=== PATIENT | male | born 1995 | race Caucasian/White ===

== ENCOUNTER 2021-12-20 16:52 | Emergency (ER) | payer OTHER ==
[~2021-12-20] VITALS: Ht 177.8 cm; Wt 99.8 kg
[2021-12-20] MEDS ORDERED: NORCO5 PO (19:20)
[2021-12-20] MEDS ORDERED: CEPHALEXIN500 MG PO (19:20)
[2021-12-20 19:57] VITALS: BP 133/95
== END 2021-12-20 19:58 | disposition home or self-care (01) ==
LOC: ER 16:52
DX: S62.514A Nondisplaced fracture of proximal phalanx of right thumb, initial encounter for closed fracture (principal); X58.XXXA Exposure to other specified factors, initial encounter; Y93.89 Activity, other specified; Y92.89 Other specified places as the place of occurrence of the external cause; Y99.8 Other external cause status